=== PATIENT | male | born 1965 | race Caucasian/White ===

== ENCOUNTER 2019-08-25 14:17 | Emergency (ER) | payer OTHER, SELFPAY ==
--- NOTE | 2019-08-25 14:50 | PC.NURSE ---
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
== END 2019-08-25 14:50 | disposition left against medical advice (07) ==
PROVIDERS: PCP Family Medicine
DX: Z53.21 Procedure and treatment not carried out due to patient leaving prior to being seen by health care provider (principal)
CPT/HCPCS: 99199

== ENCOUNTER 2019-08-25 16:59 | Emergency (ER) | payer OTHER, SELFPAY ==
--- NOTE | ~2019-08-25 | CT_ITS ---
EXAMINATION: CT brain wo con INDICATION: Dizziness COMPARISON: 05/19/2018 TECHNIQUE: Standard unenhanced head CT. The dose-length product (DLP) was 681.00 mGy-cm. The mA was a djusted according to patient size. Iterative reconstruction technique was employed. FINDINGS: There is no intracranial hemorrhage, acute infarction, or abnormal mass lesion. The ventric les are normal. There is no abnormal mass effect or midline shift. The romero-white matter differentiat ion is normal. The basal cisterns are patent. A developmental venous anomaly is noted on the right si de which is unchanged since the prior examination. The orbits are normal. There is mucosal thickening of the maxillary and ethmoidal sinuses. IMPRESSION: 1. No acute intracranial abnormality. Reviewed, dictated and finalized at location A. [employer]
--- NOTE | ~2019-08-25 | XR_ITS ---
EXAMINATION: XR chest 2V DATE: 08/25/2019 17:28 INDICATION: Weakness and dizziness TECHNIQUE: PA and lateral views of the chest are obtained. COMPARISON: 05/19/2018 FINDINGS: The lungs are free of acute opacities. There is no pleural effusion or pneumothorax. The ca rdiomediastinal silhouette is normal. There is mild thoracic spondylosis. Surgical clips in the right upper quadrant are likely from prior cholecystectomy. IMPRESSION: 1. No acute cardiopulmonary abnormality. Reviewed, dictated and finalized at location A. IR MILLER
--- NOTE | 2019-08-25 17:04 | ECG_ITS ---
Measurements Intervals [place] Rate: 63 P: 11 SD: 153 QRS: 0 QRSD: 114 T: -21 QT: 397 QTc: 408 Interpretive Statements SINUS RHYTHM INTRAVENTRICULAR CONDUCTION DELAY DELAYED PRECORDIAL R/S TRANSITION BORDERLINE ST-T WAVE ABNORMALITY- INFERIOR LEADS BORDERLINE ECG Electronically Signed On 08-25-2019 19:48:14 [employer] by Peter Jim D.O.
[2019-08-25 17:07] VITALS: BP 151/82; PULSE 69; RESP 19; TEMP 36.3; O2SAT 99
[2019-08-25 17:18] LABS: Basophils Absolute Auto 0.1 K/mm3 (0.0-0.1); Basophils Percent Auto 0.7 % (0.2-1.2); Eosinophils Absolute Auto 0.1 K/mm3 (0-0.3); Eosinophils Percent Auto 0.8 % (0-4.4); Hematocrit 54.9 % (42.0-52.0); Hemoglobin 18.8 g/dL (14.0-18.0); Immature Granulocyte Absolute 0.05 K/mm3 (0.00-0.031); Immature Granulocyte Percent A 0.4 % (0-0.5); Lymphocytes Absolute Auto 1.11 K/mm3 (0.9-3.2); Lymphocytes Percent Auto 9.3 % (18.3-44.2); Mean Corpuscular HGB Conc 34.2 g/dl (32-36); Mean Corpuscular Hemoglobin 33.1 pg (26-34); Mean Corpuscular Volume 96.7 fl (80-100); Mean Platelet Volume 9.2 fl (7.4-10.4); Monocytes Absolute Auto 0.7 K/mm3 (0.1-0.6); Monocytes Percent Auto 6.1 % (2.6-8.5); Neutrophils Absolute Auto 9.9 K/mm3 (1.3-6.7); Neutrophils Percent Auto 82.7 % (45.5-73.1); Platelet Count Result 277 k/mm3 (150-375); Red Blood Count 5.68 M/mm3 (4.6-6.20); Red Cell Distribution Width 12.5 % (11.5-14.5)
[2019-08-25 17:27] LABS: Alanine Aminotransferase 29 U/L (4-50); Albumin Level 5.3 g/dL (3.5-5.1); Alkaline Phosphatase 66 U/L (38-126); Aspartate Amino Transferase 35 U/L (17-59); Blood Urea Nitrogen 9 mg/dL (9-20); Calcium 9.9 mg/dL (8.4-10.2); Carbon Dioxide 28 mmol/L (22-30); Chloride 97 mmol/L (98-107); Estimated CRCL calculation 83 ml/min; Estimated Glomerular Filt Rate > 60; Glucose 107 mg/dL (75-110); Potassium 4.3 mmol/L (3.4-5.0); Sodium 138 mmol/L (137-145)
[2019-08-25 19:50] VITALS: BP 151/89; PULSE 72; RESP 19; TEMP 36.8; O2SAT 99
--- NOTE | 2019-08-25 21:13 | ED.DIZZY ---
HPI - Dizziness General Chief Complaint: Dizziness <WILLIAM Molina Last Filed: 08/25/19 22:39> Stated Complaint: dizziness <WILLIAM Molina Last Filed: 08/25/19 22:39> Time Seen by Provider: 08/25/19 20:34 <WILLIAM Molina Last Filed: 08/25/19 22:39> Source: patient <WILLIAM Molina Last Filed: 08/25/19 22:39> Mode of arrival: ambulatory <WILLIAM Molina Last Filed: 08/25/19 22:39> Limitations: no limitations <WILLIAM Molina Last Filed: 08/25/19 22:39> History of Present Illness HPI Narrative: Patient is a 53-year-old male who presents to emergency department for evaluation dizziness and sinus pressure that began this morning woke with sinus pressure with history of chronic sinusitis with pressure in the frontal sinuses followed by dizziness went to urgent care and was evaluated and referred to emergency department patient notes that the dizziness worsened with standing and activity had some nausea and emesis which resolved with Zofran upon arrival to emergency department patient notes mild discomfort in the frontal sinuses coupled with some mild nausea denies any current dizziness or other complaints and is otherwise resting comfortably patient denies any vertigo in the past but does note history of chronic sinusitis is noted which was followed and managed by primary care <WILLIAM Molina Last Filed: 08/25/19 22:39> Related Data Allergies/Adverse Reactions: Allergies Allergy/AdvReac Type Severity Reaction Status Date / Time codeine Allergy Unknown Verified 06/28/18 07:10 tramadol Allergy Unknown Verified 06/28/18 07:10 narcotics AdvReac Mild Nausea and Uncoded 09/02/16 15:52 Vomiting <WILLIAM Molina Last Filed: 08/25/19 22:39> Review of Systems Review of Systems: All systems reviewed & are unremarkable except as noted in HPI and below <WILLIAM Molina Last Filed: 08/25/19 22:39> PMFSH Past Medical History Medical History: Medical History (Updated 08/26/19 @ 00:00 by Lindsay Floyd) Hyperlipidemia Hypertension Sinusitis <WILLIAM Molina Last Filed: 08/25/19 22:39> Surgical History Surgical History: Surgical History H/O cardiac catheterization <Juan Carlos Oliva PA-C - Last Filed: 08/25/19 22:39> Family History Family History: Family History Father Hypertension Mother Family history of malignant neoplasm of breast in first degree relative <Juan Carlos Oliva PA-C - Last Filed: 08/25/19 22:39> Social History Social History: Social History Smoking status: Former smoker Smoking end date: 07/13/12 Gender identity (if verbalized by the patient): Male <Juan Carlos Oliva PA-C - Last Filed: 08/25/19 22:39> Exam Narrative: Exam Narrative: GENERAL: Well-appearing, well-nourished, and in no acute distress. HEAD: Normocephalic, atraumatic. EYES: PERRLA and EOMI. ENT: Nares clear, no rhinorrhea or epistaxis. Mucous membranes moist. Oropharynx without tonsillar hypertrophy exudate or other lesions. Bilateral TMs pearly romero nonbulging NECK: Supple. No adenopathy or masses. CHEST: Clear to auscultation. No respiratory distress. No wheezes rales or rhonchi HEART: Regular rate and rhythm. No murmur heard. Normal peripheral pulses. EXTREMITIES: Normal range of motion. No edema. SKIN: Warm, dry, no rash. NEURO: No focal deficits. Alert and oriented x3. Cranial nerves II through XII grossly intact. Normal speech and gait PSYCH: Normal mood and affect. <Juan Carlos Oliva PA-C - Last Filed: 08/25/19 22:39> Course Course Emergency Course: Patient in the room in no distress aware of case findings treatment plan and diagnosis agreeing to follow-up as directed or to ret
[2019-08-25] MEDS: MECLIZINE HCL 25 MG TABLET PO (21:15)
[2019-08-25] MEDS: METOCLOPRAMIDE HCL INJ 10 MG/2 ML VIAL IV PUSH (21:16)
[2019-08-25] MEDS: LACTATED RINGERS 1,000 ML 999 ML IV CONT (21:18)
--- NOTE | 2019-08-25 22:31 | PC.NURSE ---
Pt denies having a h/a or any dizziness a this moment. States he's just ready to go home.
[2019-08-25 22:55] VITALS: BP 146/101; PULSE 59; RESP 16; TEMP 37.1; O2SAT 100
[2019-08-25 23:06] VITALS: RESP 17
== END 2019-08-25 23:06 | disposition home or self-care (01) ==
PROVIDERS: Emergency Provider Emergency Medicine; PCP Family Medicine
DX: R42 Dizziness and giddiness (principal); E78.5 Hyperlipidemia, unspecified; I10 Essential (primary) hypertension; Z87.891 Personal history of nicotine dependence; I45.9 Conduction disorder, unspecified; R94.31 Abnormal electrocardiogram [ECG] [EKG]
CPT/HCPCS: 36415; 70450; 71046; 80053; 85025; 93005; 96361; 96374; 96375; 99284; A9270; J1200; J2765; J3360; J7120

== ENCOUNTER 2023-10-21 13:50 | Emergency (ER) | payer OTHER, SELFPAY ==
[2023-10-21] VITALS (14 sets, daily range): BP systolic 164–188; BP diastolic 93–105; PULSE 50–69; RESP 6–21; TEMP 36.3; O2SAT 93–99
--- NOTE | ~2023-10-21 | CT_ITS ---
EXAMINATION: CT brain wo con DATE: 10/21/2023 15:40 INDICATION: Headache and hypertension TECHNIQUE: Computed tomography (CT) of the head was performed without intravenous contrast. Sagittal and coronal reconstructions were performed. The mA was adjusted according to patient size. Iterative reconstruction technique was employed. The dose-length product was 681.00 mGy-cm. COMPARISON: None FINDINGS: No acute intracranial hemorrhage, acute infarction or abnormal extra axial fluid collection. There is mild to moderate scattered white matter hypoattenuation consistent with chronic small vessel ischemi c disease. This most prominent around a higher attenuation linear likely developmental venous anomaly extending peripherally across the right frontal lobe from the region of the right caudate nucleus. V entricles are normal and symmetric. No mass/mass effect. Right frontoethmoidal sinus disease with par tial opacification of the right frontal sinus and prominent mucosal thickening the anterior right eth moid sinus and visualized right maxillary sinus. Additional mild mucosal thickening at the left front oethmoidal recess and left maxillary sinus. The orbits and mastoid air cells are normal. IMPRESSION: 1. 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 No acute intracranial process. Reviewed, dictated and finalized at location B. IMPRESSION: 1. 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 No acute intracrani al process.
--- NOTE | ~2023-10-21 | XR_ITS ---
EXAMINATION: XR chest 2V DATE: 10/21/2023 15:33 INDICATION: Hypotension. Headache. TECHNIQUE: Frontal and lateral views of the chest were obtained. COMPARISON: None. FINDINGS: There is no pneumonia, pleural effusion, or pneumothorax. The heart size is normal. There i s mild chronic anterior wedging of a midthoracic vertebral body. There are surgical clips in the abdo men. IMPRESSION: 1. No acute cardiopulmonary disease. Reviewed, dictated and finalized at location A.
--- NOTE | 2023-10-21 14:58 | ED.RECABL ---
HPI - Recheck/Abnormal Lab/Rx General Chief Complaint: Recheck/Abnormal Lab/Rx <Nael Crystal APRN - Last Filed: 10/21/23 15:00> Stated Complaint: sent by PCP for high BP <Nael Crystal APRN - Last Filed: 10/21/23 15:00> Time Seen by Provider: 10/21/23 14:58 <Nael Crystal APRN - Last Filed: 10/21/23 15:00> Focused HPI: Print is 58-year-old male patient presenting to clinic today with complaints of hypertension. He reports he does have a frontal headache likely due to sinus pressure. States his doctor sent him here due to his eye blood pressure. Blood pressure at home was 200/110 and at the doctor's office it was 190/100. Patient sees Dr[address] Roy. He denies any visual changes or dizziness, GENERAL: Well-appearing, well-nourished, and in no acute distress. HEAD: Normocephalic, atraumatic. CHEST: Clear to auscultation. No respiratory distress. HEART: Regular rate and rhythm. NEURO: Alert and oriented x3. Patient screened in triage and initial orders placed. Additional care and disposition to be based upon diagnostic testing and treatment. <Nael Crystal APRN - Last Filed: 10/21/23 15:00> Source: patient <Nael Crystal APRN - Last Filed: 10/21/23 15:00> Mode of arrival: ambulatory <Nael Crystal APRN - Last Filed: 10/21/23 15:00> Limitations: no limitations <Nael Crystal APRN - Last Filed: 10/21/23 15:00> History of Present Illness HPI narrative: Patient is a 58-year-old male who presents ER with elevated blood pressures. This was discovered today after going to an urgent care. Patient has been having frontal headache associated with sinus pressure but no actual nasal congestion productive cough. No fevers or chills or sweats. He has been taking Sudafed without improvement of his symptoms. Reports blood pressure went up to 200 mmHg systolic. No history of hypertension previously. No change in vision or hearing. No numbness or tingling in the <Ty Cortés MD - Last Filed: 10/21/23 18:10> Related Data Allergies/Adverse Reactions: Allergies Allergy/AdvReac Type Severity Reaction Status Date / Time codeine Allergy Unknown Dizziness Verified 10/21/23 15:46 tramadol Allergy Unknown Dizziness Verified 10/21/23 15:46 narcotics AdvReac Mild Nausea and Uncoded 10/21/23 15:46 Vomiting <Nael Crystal APRN - Last Filed: 10/21/23 15:00> Review of Systems Review of Systems: All systems reviewed & are unremarkable except as noted in HPI and below <Ty Cortés MD - Last Filed: 10/21/23 18:10> Constitutional: Constitutional: Reports no additional constitutional complaints <Ty Cortés MD - Last Filed: 10/21/23 18:10> ENT: Reports nasal congestion and Denies sore throat <Ty Cortés MD - Last Filed: 10/21/23 18:10> Cardiovascular: Cardiovascular: Reports no additional cardiovascular complaints <Ty Cortés MD - Last Filed: 10/21/23 18:10> Respiratory: Respiratory: Reports no additional respiratory complaints <Ty Cortés MD - Last Filed: 10/21/23 18:10> Gastrointestinal: Gastrointestinal: Reports no additional gastrointestinal complaints <Ty Cortés MD - Last Filed: 10/21/23 18:10> Neurologic: Denies syncope, Reports headache(s), Denies focal weakness and Denies numbness <Ty Cortés MD - Last Filed: 10/21/23 18:10> [facility] Past Medical History Medical History: Medical History (Updated 10/21/23 @ 18:04 by Ty Cortés MD) Hyperlipidemia Hypertension Sinusitis <Nael Crystal APRN - Last Filed: 10/21/23 15:00> Surgical History Surgical History: Surgical History H/O cardiac catheterization <Nael Crystal APRN - Last Filed: 10/21/23 15:00> Family History Family History: Family History Father Hypert
--- NOTE | 2023-10-21 15:00 | ECG_ITS ---
SEE SCANNED COPY FOR CONFIRMED REPORT MTDD
[2023-10-21 15:31] LABS: Basophils Absolute Auto 0.1 K/mm3 (0.0-0.1); Basophils Percent Auto 1.3 % (0.2-1.2); Eosinophils Absolute Auto 0.1 K/mm3 (0-0.3); Eosinophils Percent Auto 1.8 % (0-4.4); Hematocrit 52.3 % (42.0-52.0); Hemoglobin 18.5 g/dL (14.0-18.0); Immature Granulocyte Absolute 0.03 K/mm3 (0.00-0.031); Immature Granulocyte Percent A 0.4 % (0-0.5); Lymphocytes Absolute Auto 1.77 K/mm3 (0.9-3.2); Lymphocytes Percent Auto 22.1 % (18.3-44.2); Mean Corpuscular HGB Conc 35.4 g/dl (32-36); Mean Corpuscular Hemoglobin 34.9 pg (26-34); Mean Corpuscular Volume 98.7 fl (80-100); Mean Platelet Volume 9.1 fl (7.4-10.4); Monocytes Absolute Auto 0.8 K/mm3 (0.1-0.6); Monocytes Percent Auto 10.5 % (2.6-8.5); Neutrophils Absolute Auto 5.1 K/mm3 (1.3-6.7); Neutrophils Percent Auto 63.9 % (45.5-73.1); Platelet Count Result 272 k/mm3 (150-375); Red Cell Distribution Width 12.7 % (11.5-14.5)
[2023-10-21 15:33] LABS: Appearance Urine Clear (Clear); Bacteria Urine None Seen /hpf; Bilirubin Urine Negative (Negative); Blood Urine Negative (Negative); Color Urine Dark Yellow (Yellow); Glucose Urine UA Negative (Negative); Ketones Urine Trace mg/dL (Negative); Leukocyte Esterase Ur Negative LEU/UL (Negative); Nitrate Urine Negative (Negative); Non Pathogenic Casts 0-2; Protein Urine 2+ mg/dL (Negative); RBC Urine 0-2 /hpf (0-2); Specific Grav Ur 1.022 (1.001-1.035); Squamous Epithelial Cell Urine None Seen /hpf (Few); WBC Urine 0-5 /hpf (0-3); pH Urine 6.5 (5.0-9.0)
[2023-10-21 15:40] LABS: Alanine Aminotransferase 38 U/L (6-50); Albumin Level 4.7 g/dL (3.5-5.1); Alkaline Phosphatase 56 U/L (38-126); Anion Gap 9 mmol/L (4-12); Aspartate Amino Transferase 59 U/L (17-59); Blood Urea Nitrogen 6 mg/dL (9-20); Calcium 9.3 mg/dL (8.4-10.2); Carbon Dioxide 31 mmol/L (22-30); Chloride 95 mmol/L (98-107); Estimated Glomerular Filt Rate > 60; Glucose 116 mg/dL (65-110); Potassium 3.1 mmol/L (3.4-5.0); Sodium 135 mmol/L (137-145)
[2023-10-21 15:46] LABS: Partial Thromboplastin Time 25.9 Seconds (22.3-36.8)
[2023-10-21 15:51] LABS: Troponin I 0.016 ng/mL (0.000-0.034)
[2023-10-21 15:53] LABS: Add Urine Microscopic? YES
[2023-10-21] MEDS: KETOROLAC 15 MG/ML VIAL (*BKC) IV PUSH (16:23)
[2023-10-21 16:45] LABS: Prothrombin Time 13.4 Seconds (11.1-14.7)
== END 2023-10-21 18:24 | disposition home or self-care (01) ==
PROVIDERS: Nurse Practitioner Family; Emergency Provider Emergency Medicine; PCP Family Medicine
DX: J32.9 Chronic sinusitis, unspecified (principal); I10 Essential (primary) hypertension; E78.5 Hyperlipidemia, unspecified; Z87.891 Personal history of nicotine dependence
CPT/HCPCS: 36415; 70450; 71046; 80053; 81001; 84484; 85025; 85610; 85730; 93005; 96374; 99284; J1885